=== PATIENT | male | born 1995 | race Hispanic/Latino ===

== ENCOUNTER 2022-03-19 10:41 | Emergency (ER) | payer OTHER ==
[~2022-03-19] VITALS: Ht 160 cm; Wt 68.0 kg
[2022-03-19 10:47] VITALS: BP 132/93
[2022-03-19] MEDS ORDERED: ONDA-104 PO (12:21)
[2022-03-19] MEDS ORDERED: IBUP-1493 PO (12:21)
[2022-03-19] MEDS ORDERED: IBUPROFEN 800 MG TAB PO ONE (12:30)
[2022-03-19] MEDS ORDERED: ONDANSETRON ODT 4MG TAB SL ONE (12:30)
== END 2022-03-19 12:43 | disposition home or self-care (01) ==
LOC: EDH 10:41
DX: S09.90XA Unspecified injury of head, initial encounter (principal); E11.9 Type 2 diabetes mellitus without complications; I10 Essential (primary) hypertension; J45.909 Unspecified asthma, uncomplicated; X58.XXXA Exposure to other specified factors, initial encounter; Y93.89 Activity, other specified; Y92.89 Other specified places as the place of occurrence of the external cause; Y99.8 Other external cause status